=== PATIENT | female | born 1950 | race African-American/Black ===

== ENCOUNTER 2016-08-23 11:00 | Outpatient (RCR) | payer OTHER | END 2016-08-24 | disposition home or self-care (01) | LOC: PTY 11:00 | DX: M51.16 Intervertebral disc disorders with radiculopathy, lumbar region (principal); M48.06 Spinal stenosis, lumbar region; Z96.651 Presence of right artificial knee joint; G56.02 Carpal tunnel syndrome, left upper limb; M72.2 Plantar fascial fibromatosis; M79.672 Pain in left foot; M16.0 Bilateral primary osteoarthritis of hip; T84.84XD Pain due to internal orthopedic prosthetic devices, implants and grafts, subsequent encounter; M76.891 Other specified enthesopathies of right lower limb, excluding foot; X58.XXXD Exposure to other specified factors, subsequent encounter | CPT/HCPCS: 97140; 97163; G0283 ==

== ENCOUNTER 2016-08-28 10:00 | Outpatient (RCR) | payer OTHER | END 2016-09-23 | disposition home or self-care (01) | LOC: PTY 10:00 | DX: M51.16 Intervertebral disc disorders with radiculopathy, lumbar region (principal); M48.06 Spinal stenosis, lumbar region | CPT/HCPCS: 97035; 97110; 97140; G0283 ==

== ENCOUNTER 2016-09-27 10:00 | Outpatient (RCR) | payer OTHER | END 2016-10-24 | disposition home or self-care (01) | LOC: PTY 10:00 | DX: M51.16 Intervertebral disc disorders with radiculopathy, lumbar region (principal); M48.06 Spinal stenosis, lumbar region | CPT/HCPCS: 97110; 97140; G0283 ==

== ENCOUNTER 2016-10-25 13:45 | Outpatient (RCR) | payer OTHER | END 2016-11-23 | disposition home or self-care (01) | LOC: PTY 13:45 | DX: M51.16 Intervertebral disc disorders with radiculopathy, lumbar region (principal); M48.06 Spinal stenosis, lumbar region | CPT/HCPCS: 97035; 97110; 97140; G0283 ==

== ENCOUNTER 2016-11-26 13:45 | Outpatient (RCR) | payer OTHER | END 2016-12-24 | disposition home or self-care (01) | LOC: PTY 13:45 | DX: M51.16 Intervertebral disc disorders with radiculopathy, lumbar region (principal); M48.06 Spinal stenosis, lumbar region | CPT/HCPCS: 97110; 97140; G0283 ==

== ENCOUNTER → 2017-03-26 | Outpatient (RCR) | payer OTHER | END | disposition home or self-care (01) | LOC: PTY 02-26 10:44 | DX: M16.0 Bilateral primary osteoarthritis of hip (principal); Z96.642 Presence of left artificial hip joint | CPT/HCPCS: 97110; 97140; 97162; G0283 ==

== ENCOUNTER → 2017-04-25 | Outpatient (RCR) | payer OTHER | END | disposition home or self-care (01) | LOC: PTY 03-28 09:21 | DX: M16.0 Bilateral primary osteoarthritis of hip (principal); Z96.642 Presence of left artificial hip joint | CPT/HCPCS: 97110; 97140; G0283 ==

== ENCOUNTER 2017-05-23 14:00 | Outpatient (RCR) | payer OTHER | END 2017-05-26 | disposition home or self-care (01) | LOC: PTY 14:00 | DX: M16.0 Bilateral primary osteoarthritis of hip (principal); Z96.642 Presence of left artificial hip joint; M25.552 Pain in left hip | CPT/HCPCS: 97110; 97140; G0283 ==

== ENCOUNTER 2017-06-03 11:00 | Outpatient (RCR) | payer OTHER | END 2017-06-26 | disposition home or self-care (01) | LOC: PTY 11:00 | DX: M16.0 Bilateral primary osteoarthritis of hip (principal); Z96.642 Presence of left artificial hip joint | CPT/HCPCS: 97110; 97140; G0283 ==

== ENCOUNTER 2017-06-12 15:00 | Outpatient (RCR) | payer OTHER | END 2017-06-26 | disposition home or self-care (01) | LOC: PTY 15:00 | DX: M51.36 Other intervertebral disc degeneration, lumbar region (principal); M16.0 Bilateral primary osteoarthritis of hip; Z96.642 Presence of left artificial hip joint ==

== ENCOUNTER 2017-06-14 14:00 | Outpatient (RCR) | payer OTHER | END 2017-06-26 | disposition home or self-care (01) | LOC: PTY 14:00 | DX: M17.12 Unilateral primary osteoarthritis, left knee (principal); Z96.642 Presence of left artificial hip joint; M51.36 Other intervertebral disc degeneration, lumbar region; M16.0 Bilateral primary osteoarthritis of hip; Z96.651 Presence of right artificial knee joint | CPT/HCPCS: 97110; 97140; 97162; G0283 ==

== ENCOUNTER 2017-07-01 11:15 | Outpatient (RCR) | payer OTHER | END 2017-07-24 | disposition home or self-care (01) | LOC: PTY 11:15 | DX: M51.36 Other intervertebral disc degeneration, lumbar region (principal); M16.0 Bilateral primary osteoarthritis of hip; Z96.642 Presence of left artificial hip joint; Z96.651 Presence of right artificial knee joint | CPT/HCPCS: 97110; 97112; 97140; G0283 ==

== ENCOUNTER 2017-07-08 13:00 | Outpatient (RCR) | payer OTHER | END 2017-07-24 | disposition home or self-care (01) | LOC: PTY 13:00 | DX: M17.12 Unilateral primary osteoarthritis, left knee (principal); Z96.642 Presence of left artificial hip joint; M51.36 Other intervertebral disc degeneration, lumbar region; M16.0 Bilateral primary osteoarthritis of hip; Z96.651 Presence of right artificial knee joint | CPT/HCPCS: 97110; 97140; G0283 ==

== ENCOUNTER 2017-08-12 13:44 | Outpatient (RCR) | payer OTHER | END 2017-08-24 | disposition home or self-care (01) | LOC: PTY 13:44 | DX: M17.12 Unilateral primary osteoarthritis, left knee (principal); Z96.642 Presence of left artificial hip joint; M16.0 Bilateral primary osteoarthritis of hip; Z96.651 Presence of right artificial knee joint; M51.36 Other intervertebral disc degeneration, lumbar region | CPT/HCPCS: 97110; 97140; G0283 ==

== ENCOUNTER 2017-08-26 11:00 | Outpatient (RCR) | payer OTHER | END 2017-09-23 | disposition home or self-care (01) | LOC: PTY 11:00 | DX: M17.12 Unilateral primary osteoarthritis, left knee (principal); Z96.642 Presence of left artificial hip joint; M51.36 Other intervertebral disc degeneration, lumbar region; M16.0 Bilateral primary osteoarthritis of hip ==

== ENCOUNTER 2017-09-13 09:00 | Outpatient (RCR) | payer OTHER | END 2017-09-23 | disposition home or self-care (01) | LOC: PTY 09:00 | DX: M51.36 Other intervertebral disc degeneration, lumbar region (principal); M16.0 Bilateral primary osteoarthritis of hip; Z96.642 Presence of left artificial hip joint ==

== ENCOUNTER 2017-09-25 15:00 | Outpatient (RCR) | payer OTHER | END 2017-10-24 | disposition home or self-care (01) | LOC: PTY 15:00 | DX: M17.12 Unilateral primary osteoarthritis, left knee (principal); M51.36 Other intervertebral disc degeneration, lumbar region; Z96.642 Presence of left artificial hip joint | CPT/HCPCS: 97032; 97110; 97140; G0283 ==

== ENCOUNTER 2017-10-28 15:00 | Outpatient (RCR) | payer OTHER | END 2017-11-23 | disposition home or self-care (01) | LOC: PTY 15:00 | DX: M17.12 Unilateral primary osteoarthritis, left knee (principal); Z96.642 Presence of left artificial hip joint ==

== ENCOUNTER 2017-11-18 13:05 | Outpatient (RCR) | payer OTHER | END 2017-11-23 | disposition home or self-care (01) | LOC: PTY 13:05 | PROVIDERS: ATTEND Internal Medicine | DX: M51.36 Other intervertebral disc degeneration, lumbar region (principal) ==

== ENCOUNTER 2017-11-25 15:00 | Outpatient (RCR) | payer OTHER | END 2017-12-24 | disposition home or self-care (01) | LOC: PTY 15:00 | PROVIDERS: ATTEND Internal Medicine | DX: M51.36 Other intervertebral disc degeneration, lumbar region (principal) ==

== ENCOUNTER 2017-12-27 14:00 | Outpatient (RCR) | payer OTHER | END 2018-01-24 | disposition home or self-care (01) | LOC: PTY 14:00 | PROVIDERS: ATTEND Internal Medicine | DX: M51.36 Other intervertebral disc degeneration, lumbar region (principal) ==